=== PATIENT | female | born 1980 | race American Indian/Alaskan Native ===

== ENCOUNTER 2018-08-12 03:13 | Emergency (ER) | payer SELFPAY ==
--- NOTE | 2018-08-12 03:20 | C.PDOC ---
History Of Present Illness 37 year old female presents to the ED c/o abdominal pain and vaginal spotting that started yesterday. Patient reports symptoms worsened today while at work. Patient denies fever, chills, nausea, vomit, diarrhea, back pain, rash, weak ness, numbness. Time Seen by Provider: 08/12/18 03:20 Chief Complaint (Nursing): Abdominal Pain History Per: Patient History/Exam Limitations: no limitations Onset/Duration Of Symptoms: Days Current Symptoms Are (Timing): Still Present Location Of Pain/Discomfort: Suprapubic Radiation Of Pain To:: None Quality Of Discomfort: "Pain" Associated Symptoms: denies: Nausea, Vomiting, Diarrhea, Urinary Symptoms Recent travel outside of the [place]: No Additional History Per: Patient Abnormal Vaginal Bleeding: No Last Menstral Period: 07/24/18 Past Medical History Reviewed: Historical Data, Nursing Documentation, Vital Signs - Medical History PMH: No Chronic Diseases Surgical History: No Surg Hx Family History: States: Unknown Family Hx - Social History Hx Tobacco Use: No Hx Alcohol Use: No Hx Substance Use: No Review Of Systems Constitutional: Negative for: Fever, Chills Cardiovascular: Negative for: Chest Pain Respiratory: Negative for: Shortness of Breath Gastrointestinal: Positive for: Abdominal Pain. Negative for: Nausea, Vomiting Genitourinary: Positive for: Vaginal Bleeding. Negative for: Dysuria Musculoskeletal: Negative for: Back Pain Skin: Negative for: Rash Neurological: Negative for: Weakness, Numbness Physical Exam - Physical Exam Appears: Non-toxic, No Acute Distress Skin: Warm, Dry Head: Normacephalic Eye(s): bilateral: Normal Inspection Neck: Supple Chest: Symmetrical Cardiovascular: Rhythm Regular Respiratory: No Rales, No Rhonchi, No Wheezing Gastrointestinal/Abdominal: Soft, Tenderness (mild suprapubic), No Guarding, No Rebound Back: Normal Inspection Extremity: Bilateral: Atraumatic, Normal Color And Temperature, Normal ROM Neurological/Psych: Oriented x3, Normal Speech, Normal Cognition Gait: Steady ED Course And Treatment - Laboratory Results Result Diagrams: 08/12/18 04:40 08/12/18 04:40 O2 Sat by Pulse Oximetry: 99 (ON RA) Pulse Ox Interpretation: Normal - CT Scan/US CT abd/pelvis Other Rad Studies (CT/US): Read By Radiologist, Radiology Report Reviewed CT/US Interpretation: CT SCAN OF THE ABDOMEN AND PELVIS WITH CONTRAST. CLINICAL HISTORY: Abdominal pain. TECHNIQUE: Multiple axial and coronal CT images were obtained through the abdomen and pelvis after administration of intravenous co ntrast material. COMMENTS: Uncomplicated colonic diverticulosis. The liver is of uniform attenuation without mass or defect. There is no intra or extrahepatic biliary ductal dilatation. The spleen is normal. The gallbladder is within normal limits. The pancreas is of normal contour and attenuation characteristics. There is no evidence of adrenal mass. Both kidneys demonstrate prompt and equal nephrograms. The kidneys are normal in size, shape and configuration. There is no evidence of renal or ureteral mass. No renal or ureteral calculi are identified. There is no hydroureter or hydronephrosis. No evidence for appendicitis. There is no bowel wall thickening. No evidence for small or large bowel obstruction. There is no evidence of abdominal ascites or lymphadenopathy. Mild diffuse thickening of the bladder. There is no evidence of intrinsic or extrinsic bladder mass. There is no pelvic ascites or lymphadenopathy. Images of the lung bases show no evidence of pleural or parenchymal mass. There are no pleural effusions. The bony structures are free of lytic or blastic lesions. IMPRESSION: Mild thickening of the underdistended bladder. Underdistention versus mild cystitis. Otherwise, no evidence of acute abdominal or pelvic pathology. Thank you for your kind referral of this patient. . Electronically signed on Aug 12, 2018 6:25:56 AM EST by: Ankit Johnston M.D., Certified by ABR, MSK, Neuroradiology Reevaluation Time: 06:30 Reassessment Condition: Improved Disposition Counseled Patient/Family Regarding: Studies Performed, Diagnosis, Need For Followup - Disposition Referrals: [facility] [Outside] [facility] [Outside] Disposition: HOME/ ROUTINE Disposition Time: 03:20 Condition: FAIR Additional Instructions: Please return if symptoms recur Instructions: Heavy Periods (DC) Forms: [facility] (Filipino) - Clinical Impression Clinical Impression: Vaginal bleeding - Scribe Statement The provider has reviewed the documentation as recorded by the Scribe Ion Pérez All medical record entries made by the Scribe were at my direction and personally dictated by me. I have reviewed the chart and agree that the record accurately reflects my personal performance of the history, physical exam, medical decision making, and the department course for this patient. I have also personally directed, reviewed, and agree with the discharge instructions and disposition.
[2018-08-12 04:02] LABS: SQUAMOUS EPITHIAL 19 /hpf (0-5); URINE BILIRUBIN NEGATIVE (NEGATIVE); URINE BLOOD 3+ (NEGATIVE); URINE CALCIUM OXALATE CRYSTALS FEW /hpf (<OCC); URINE CLARITY Turbid (Clear); URINE COLOR Red (YELLOW); URINE GLUCOSE (UA) NORMAL (Normal); URINE LEUKOCYTE ESTERASE TRACE Leu/uL (Negative); URINE PROTEIN 2+ mg/dL (NEGATIVE)
[2018-08-12 04:03] LABS: HCG,QUALITATIVE URINE NEGATIVE (NEGATIVE)
[2018-08-12] MEDS ORDERED: Sodium Chloride 0.9% 1,000 ML IV ONE (04:16)
[2018-08-12] MEDS ORDERED: Sodium Chloride 0.9% 1,000 ML ONE (04:30)
[2018-08-12 04:44] LABS: BASO # 0.1 K/uL (0.0-0.2); BASO % 1.5 % (0.0-2.0); EOS # 0.1 K/uL (0.0-0.7); EOS % 1.7 % (0.0-4.0); HEMOGLOBIN 12.9 g/dL (11.0-16.0); LYMPH # 1.7 K/uL (1.0-4.3); MEAN CELL VOLUME 96.8 fL (81.0-99.0); MEAN CORPUSCULAR HEMOGLOBIN 32.1 pg (27.0-31.0); MEAN CORPUSCULAR HGB CONC 33.1 g/dL (33.0-37.0); MEAN PLATELET VOLUME 9.5 fL (7.2-11.7); MONO # 0.3 K/uL (0.0-0.8); MONO % 4.4 % (0.0-10.0); NEUT # 3.9 K/uL (1.8-7.0); NEUT % 64.4 % (50.0-75.0); NRBC % 0.1 % (0.0-2.0); RBC 4.03 Mil/uL (3.80-5.20); RED CELL DISTRIBUTION WIDTH 12.7 % (11.5-14.5); WHITE BLOOD COUNT 6.1 K/uL (4.8-10.8)
[2018-08-12 04:52] LABS: PROTHROMBIN TIME 11.1 SECONDS (9.7-12.2)
[2018-08-12] MEDS ORDERED: Iodixanol 320 MG/ML 100 ML BOTTLE IV ONE (04:55)
[2018-08-12 04:57] LABS: ALB/GLOB RATIO 1.4 (1.0-2.1); ALBUMIN 4.4 g/dL (3.5-5.0); ALT/SGPT 23 U/L (9-52); AST/SGOT 25 U/L (14-36); BLOOD UREA NITROGEN 14 mg/dL (7-17); CALCIUM 9.4 mg/dl (8.6-10.4); GFR NON-AFRICAN AMERICAN > 60; LIPASE 155 U/L (23-300)
--- NOTE | 2018-08-12 09:33 | CT ---
Date of service: 08/12/2018 PROCEDURE: CT Abdomen and Pelvis with contrast HISTORY: suprapubic abd pain COMPARISON: None. TECHNIQUE: Contrast dose: 100 mL Visipaque 320 Radiation dose: Total exam DLP = 523.72 mGy-cm. This CT exam was performed using one or more of the following dose reduction techniques: Automated exposure control, adjustment of the mA and/or kV according to patient size, and/or use of iterative reconstruction technique. FINDINGS: LOWER THORAX: Unremarkable. LIVER: Unremarkable. No gross lesion or ductal dilatation. GALLBLADDER AND BILE DUCTS: Unremarkable. PANCREAS: Unremarkable. No gross lesion or ductal dilatation. SPLEEN: Unremarkable. ADRENALS: Unremarkable. No mass. KIDNEYS AND URETERS: Unremarkable. No hydronephrosis. No solid mass. VASCULATURE: Unremarkable. No aortic aneurysm. No aortic atherosclerotic calcification or mural plaque present. BOWEL: Unremarkable. No obstruction. No gross mural thickening. APPENDIX: Normal appendix. PERITONEUM: Unremarkable. No free fluid. No free air. LYMPH NODES: Unremarkable. No enlarged lymph nodes. BLADDER: Suboptimally distended. Grossly unremarkable. REPRODUCTIVE: Normal uterus BONES: No acute fracture. OTHER FINDINGS: None. IMPRESSION: No acute abnormality. Suboptimal evaluation of urinary bladder due to underdistention. Otherwise unremarkable examination. The preliminary findings for this examination were reported by [facility] at 6:25 a.m. on 08/12/2018. There is concurrence of this report with the preliminary findings.
--- NOTE | 2018-08-12 10:24 | US ---
Pelvic ultrasound HISTORY: Vaginal bleeding. COMPARISON: None available. Technique: Real-time sonography was performed through the pelvis utilizing transabdominal and transvaginal techniques. Findings: Uterus: 7.9 x 4.4 x 5.1 centimeters. Heterogeneous echotexture. Anteverted. Endometrium measures 4.7 millimeters, within normal limits. Cervix measures 2.3 centimeters. No free fluid in pelvic cul-de-sac. Right ovary: 3.1 x 2.2 x 2.6 centimeters. Normal flow. Hypoechoic cyst measuring 1.7 x 1.3 x 1.4 centimeters. Left ovary: 1.9 x 1.0 x 1.6 centimeters. Normal flow. Impression: 1.7 centimeter right ovarian cyst. Otherwise unremarkable sonographic evaluation of the pelvis.
[2018-08-12 10:39] VITALS: BP 108/65; PULSE 61; RESP 18; TEMP 97.8; O2SAT 99
== END 2018-08-12 11:00 | disposition home or self-care (01) ==
LOC: C.ER 03:13
DX: N83.209 Unspecified ovarian cyst, unspecified side (principal); N93.9 Abnormal uterine and vaginal bleeding, unspecified
CPT/HCPCS: 74177; 76830; 76856; 80053; 81001; 83690; 84703; 85025; 85610; 85730; 96360; 99285; J7030; Q9967